=== PATIENT | female | born 1985 | race Caucasian/White ===

== ENCOUNTER 2018-03-22 02:37 | Emergency (ER) | payer BC, OTHER ==
[2018-03-22 02:43] VITALS: BP 144/92; PULSE 88; TEMP 98.2; BMI 24.1
--- NOTE | 2018-03-22 02:46 | PDOC ---
History of Present Illness - General Chief Complaint: Shortness of Breath Stated Complaint: SOB Time Seen by Provider: 03/22/18 02:46 History Source: Patient Exam Limitations: No Limitations - History of Present Illness Initial Comments: 03/22/18 02:49 This is a 32-year-old female brought in by her mother for evaluation of possible ALLERGIC reaction. Patient said that she went to sleep feeling hot and itchy. Patient looks in her tongue and said she thought it looked swollen. Patient said she also felt like she was having difficulty breathing. Patient took a Benadryl and said she feels a little better but still feels like her throat is swollen. Patient denies any itching or rash. Patient said her Benadryl was so she was concerned about that. Otherwise patient is healthy and denies any other medical problems. Allergies: None Past Medical History: none Social history: Lives with family. No smoking. No alcohol. No illicit drugs. Surgical history: None General: No fevers or chills, no weakness, no weight loss HEENT: No change in vision. No sore throat,. No ear pain, sore throat CardioVascular: no chest discomfort. + shortness of breath Respiratory:No cough, or wheezing. Gastrointestinal: no nausea, vomiting, diarrhea or constipation, No rectal bleeding Genitourinary: No dysuria, hematuria, or frequency Musculoskeletal: No joint or muscle pain or swelling Neurologic: No headache, vertigo, dizziness or loss of consciousness Psychiatric: nor depression Skin: No rashes or easy bruising Endocrine: no increased thirst or abnormal weight change Allergic: no skin or latex allergy All other systems reviewed and normal Exam: General: Well-nourished well-developed individual, no acute distress HEENT: Throat: Normal, tonsils normal, there is some mild erythema posterior oropharynx however there is no angioedema of the oropharynx tongue or soft tissue of the mouth Neck: Supple, no meningeal signs, no lymphadenopathy Eyes::Pupils equal reactive and round, extraocular motion intact Chest: Nontender to palpation Cardiac: S1-S2 normal, regular rate and rhythm, no murmurs rubs or gallops Respiratory: Lungs clear to auscultation bilateral, there is good air entry bilateral, there is no wheezing Extremities: Warm, dry, no cyanosis, clubbing, or edema Skin: No rashes Neuro: Alert and oriented x3, CN II - XII intact, nonfocal exam with normal strength, normal sensation, normal reflexes, normal gait, Psych: Normal mood and affect. Assessment: This is a 32-year-old female with some mild erythema posterior oropharynx. Patient thought she was having ALLERGIC reactions to Benadryl. Patient most likely some anxiety as well a probable viral etiology for her throat discomfort. Patient was reassured and sent home. Past History - Past Medical History Allergies/Adverse Reactions: Allergies Allergy/AdvReac Type Severity Reaction Status Date / Time [facility]lor [facility] Allergy Verified 08/17/12 09:44 Home Medications: Ambulatory Orders Norethindrone AC-Eth Estradiol [] 1 each PO DAILY 03/22/18 COPD: No - Suicide/Smoking/Psychosocial Hx Smoking Status: No Smoking History: Never smoked Number of Cigarettes Smoked Daily: 0 *Physical Exam - Vital Signs Last Vital Signs Temp Pulse Resp BP Pulse Ox 98.2 F 88 16 144/92 100 03/22/18 02:40 03/22/18 02:40 03/22/18 02:40 03/22/18 02:40 03/22/18 02:40 *DC/Admit/Observation/Transfer Diagnosis at time of Disposition: Throat and mouth symptom - Discharge Dispostion Disposition: HOME Condition at time of disposition: Stable Decision to Admit order: No - Referrals Referrals: Giuliano Chavez MD [Primary Care Provider] - - Patient Instructions Additional Instructions: Your symptoms most likely are secondary to a viral etiology. I see no evidence at this time of an ALLERGIC reaction. Tylenol or Motrin as needed for the throat discomfort. Return to the emergency department immediately with ANY new, persistent or worsening symptoms. Continue any medications as previously prescribed by your physician. You should follow up with your primary doctor as soon as possible regarding today's emergency department visit. . Please make sure your doctor reviews the results of your emergency evaluation. Thank you for coming to the Emergency Department today for your care. It was a pleasure to see you today. Please note that your evaluation is INCOMPLETE until you follow-up with your doctor. - Post Discharge Activity
== END 2018-03-22 02:56 | disposition home or self-care (01) ==
LOC: FER 02:37
DX: R09.89 Other specified symptoms and signs involving the circulatory and respiratory systems (principal)
CPT/HCPCS: 99281-25

== ENCOUNTER 2019-02-02 23:20 | Emergency (ER) | payer BC, OTHER ==
[2019-02-02 23:28] VITALS: BP 121/79; PULSE 88; TEMP 97.4; BMI 24.1
--- NOTE | 2019-02-02 23:32 | PDOC ---
History of Present Illness - General Chief Complaint: Allergic Reaction Stated Complaint: SHORTNESS OF BREATH Time Seen by Provider: 02/02/19 23:26 History Source: Patient - History of Present Illness Initial Comments: 02/03/19 06:39 feels dehydrated-- Noelle drunk a lot of water and my tongue still feels dry also air hunger-- I cant seem to take a deep breath Attributes it to korean food for dinner Timing/Duration: reports: just prior to arrival Severity: reports: moderate Possible Cause: Yes: no prior episodes Associated Symptoms: denies: chest pain/soreness, cough, dizziness, fever/chills , headache Past History - Past Medical History Allergies/Adverse Reactions: Allergies Allergy/AdvReac Type Severity Reaction Status Date / Time [facility]lor [facility] Allergy Verified 02/02/19 23:22 shellfish derived Allergy Verified 02/02/19 23:22 walnut Allergy Verified 02/02/19 23:22 Home Medications: Ambulatory Orders Norethindrone AC-Eth Estradiol [June] 1 each PO DAILY 03/22/18 COPD: No Thyroid Disease: Yes (Randi's thyroididtis) Other medical history: Hemochromatosis - Psycho Social/Smoking Cessation Hx Smoking Status: No Smoking History: Never smoked Have you smoked in the past 12 months: No Number of Cigarettes Smoked Daily: 0 Information on smoking cessation initiated: No Hx Alcohol Use: No Drug/Substance Use Hx: No Review of Systems - Review of Systems All Other Systems: Reviewed and Negative *Physical Exam - Vital Signs Last Vital Signs Temp Pulse Resp BP Pulse Ox 97.4 F L 88 18 121/79 98 02/02/19 23:24 02/02/19 23:24 02/02/19 23:24 02/02/19 23:24 02/02/19 23:24 - Physical Exam General Appearance: Yes: Nourished, Appropriately Dressed HEENT: positive: Normal Voice. negative: Rhinorrhea Neck: negative: Lymphadenopathy (R), Lymphadenopathy (L) Respiratory/Chest: positive: Lungs Clear. negative: Respiratory Distress, Rales , Wheezing Cardiovascular: positive: Regular Rhythm Gastrointestinal/Abdominal: negative: Normal Bowel Sounds, Tender Lymphatic: negative: Adenopathy Musculoskeletal: positive: Normal Inspection, Decreased Range of Motion Medical Decision Making - Medical Decision Making 02/03/19 06:42 observed x 2 hours with resolution of symptoms ? allg reaction --no objective findings of this ? dehydration--UA not consistent symptoms abated during ED stay Discharge - Discharge Information Problems reviewed: Yes Clinical Impression/Diagnosis: Nausea Condition: Good Disposition: HOME - Admission No - Follow up/Referral - Patient Discharge Instructions - Post Discharge Activity
[2019-02-03 01:09] LABS: PH,URINE 7.5 (5.0-8.0); URINE APPEARANCE CLEAR; URINE BILIRUBIN NEGATIVE (NEGATIVE); URINE COLOR YELLOW; URINE GLUCOSE (UA) NEGATIVE (NEGATIVE); URINE KETONE NEGATIVE (NEGATIVE); URINE LEUK ESTERASE NEGATIVE (NEGATIVE); URINE NITRITE NEGATIVE (NEGATIVE); URINE PROTEIN NEGATIVE (NEGATIVE); URINE UROBILINOGEN 0.2 mg/dL (0.2-1.0)
[2019-02-03] MEDS ORDERED: ONDANSETRON *ODT* 4 MG TABLET SL ONE (01:10)
[2019-02-03] MEDS ORDERED: ONDANSETRON *ODT* 4 MG TABLET ONE (01:11)
== END 2019-02-03 01:16 | disposition home or self-care (01) ==
LOC: FER 23:20
DX: R11.0 Nausea (principal); E06.3 Autoimmune thyroiditis; E83.119 Hemochromatosis, unspecified; Z88.8 Allergy status to other drugs, medicaments and biological substances; Z91.013 Allergy to seafood; Z91.018 Allergy to other foods
CPT/HCPCS: 81003; 84703; 99282-25; Q0162